=== PATIENT | male | born 1935 | race Caucasian/White ===

== ENCOUNTER → 2017-07-28 | Outpatient (CLI) | payer MEDICARE ==
[~2017-07-28] MED LIST: ASPI-1012 PO; ASPI-12 PO; CLOP75TA32 PO; IOPAMIDOL-370 75 ML VIAL IV ONE; ISOS5TAB5 PO; METO-408 PO; [UNRECOGNIZED DRUG - CODE] PO; isosorbide PO; metoprolol PO
== END | disposition home or self-care (01) ==
LOC: OIH 09:14
PROVIDERS: ATTEND Physician Assistant Medical
DX: K76.0 Fatty (change of) liver, not elsewhere classified (principal); K57.92 Diverticulitis of intestine, part unspecified, without perforation or abscess without bleeding
CPT/HCPCS: 74177; Q9967

== ENCOUNTER 2017-09-10 09:39 | Day surgery (SDC) | payer MEDICARE ==
[~2017-09-10] VITALS: Ht 185.4 cm; Wt 86.0 kg
[~2017-09-10 09:39] MED LIST changes: -ASPI-12 PO; -IOPAMIDOL-370 75 ML VIAL IV ONE; -ISOS5TAB5 PO; -METO-408 PO; +SODIUM CHLORIDE 0.9% 1000ML 1,000 ML IV ONE; -[UNRECOGNIZED DRUG - CODE] PO
[2017-09-10 10:19] VITALS: BP 135/66
[2017-09-10] MEDS ORDERED: PROPOFOL 10 MG/ML 20ML VIAL IV ONE ×2 (10:49→11:10)
[2017-09-10 11:27] VITALS: BP 98/62
== END 2017-09-10 12:10 | disposition home or self-care (01) ==
LOC: DAH 09:39 → ENDO 09:39
PROVIDERS: ATTEND Internal Medicine Gastroenterology
DX: K52.9 Noninfective gastroenteritis and colitis, unspecified (principal); K56.2 Volvulus; K29.80 Duodenitis without bleeding; K29.70 Gastritis, unspecified, without bleeding; I10 Essential (primary) hypertension; I25.119 Atherosclerotic heart disease of native coronary artery with unspecified angina pectoris; K27.9 Peptic ulcer, site unspecified, unspecified as acute or chronic, without hemorrhage or perforation; K21.9 Gastro-esophageal reflux disease without esophagitis; I48.91 Unspecified atrial fibrillation; E03.9 Hypothyroidism, unspecified; N40.0 Benign prostatic hyperplasia without lower urinary tract symptoms; Z95.1 Presence of aortocoronary bypass graft; Z95.5 Presence of coronary angioplasty implant and graft; Z98.890 Other specified postprocedural states
CPT/HCPCS: 43239; 45380; 88305; 88312; 88313; 93005; A4606; J2704 ×2; J7030

== ENCOUNTER → 2018-09-23 | Outpatient (CLI) | payer MEDICARE ==
[~2018-09-23] MED LIST changes: -SODIUM CHLORIDE 0.9% 1000ML 1,000 ML IV ONE
== END | disposition home or self-care (01) ==
LOC: RAH 13:43
PROVIDERS: ATTEND Family Medicine
DX: I65.23 Occlusion and stenosis of bilateral carotid arteries (principal); I25.10 Atherosclerotic heart disease of native coronary artery without angina pectoris; I10 Essential (primary) hypertension; I25.83 Coronary atherosclerosis due to lipid rich plaque
CPT/HCPCS: 93880

== ENCOUNTER → 2018-10-11 | Outpatient (CLI) | payer MEDICARE ==
[~2018-10-11] MED LIST changes: +IOHEXOL-350 50ML VIAL IV ONE
== END | disposition home or self-care (01) ==
LOC: RAH 07:45
PROVIDERS: ATTEND Family Medicine
DX: I65.23 Occlusion and stenosis of bilateral carotid arteries (principal)
CPT/HCPCS: 70498; Q9967

== ENCOUNTER → 2019-07-12 | Outpatient (CLI) | payer MEDICARE ==
[~2019-07-12] MED LIST changes: -IOHEXOL-350 50ML VIAL IV ONE
== END | disposition home or self-care (01) ==
LOC: RAH 13:30
PROVIDERS: ATTEND Family Medicine
DX: I70.221 Atherosclerosis of native arteries of extremities with rest pain, right leg (principal)
CPT/HCPCS: 93926

== ENCOUNTER 2020-01-05 11:53 | Observation (INO) | payer MEDICARE ==
[~2020-01-05] VITALS: Ht 188 cm; Wt 84.2 kg
[2020-01-05] MEDS ORDERED: ASPIRIN 325 MG TABLET ONE (12:11)
[2020-01-05] MEDS ORDERED: ASPIRIN 81MG TAB.CHEW ONE (12:14)
[2020-01-05 12:45] LABS: BASOPHILS % (AUTO) 0.5 % (0.0-5.0); EOSINOPHILS % (AUTO) 1.7 % (0.0-8.0); HEMATOCRIT 44.8 % (42-54); MEAN CORPUSCULAR HEMOGLOBIN 32.5 pg (27.0-33.0); MEAN CORPUSCULAR HGB CONC 33.9 g/dL (32.0-36.0); MEAN CORPUSCULAR VOLUME 95.9 fL (79-99); MONOCYTES % (AUTO) 10.7 % (3.0-13.0); NEUTROPHILS % (AUTO) 47.8 % (40.0-77.0); PLATELET COUNT (AUTO) 141 K/uL (130-400); RED BLOOD CELL COUNT(AUTO) 4.67 MIL/uL (4.50-6.20); RED CELL DISTRIBUTION WIDTH 13.4 % (11.0-15.5); WHITE BLOOD COUNT (AUTO) 5.8 K/uL (4.8-10.8)
[2020-01-05 12:51] LABS: POTASSIUM 4.2 mmol/L (3.5-5.1)
[2020-01-05] MEDS ORDERED: NITROGLYCERIN 1GM/1 INCH PACKET TD ONE ×2 (12:52→13:04)
[2020-01-05 12:53] LABS: INR 0.99 (0.85-1.15); PARTIAL THROMBOPLASTIN TIME 26.6 SEC (26.3-35.5); PROTHROMBIN TIME 10.7 SEC (9.6-11.6)
[2020-01-05 12:58] LABS: ALBUMIN 3.9 g/dL (3.5-5.0); BILIRUBIN,TOTAL 0.9 mg/dL (0.2-1.0); TOTAL PROTEIN, SERUM 7.2 g/dL (6.0-8.3)
[2020-01-05 13:39] LABS: B-TYPE NATRIURETIC PEPTIDE 112 pg/mL (0-100)
[2020-01-05] MEDS ORDERED: CLONIDINE HCL 0.1 MG TABLET PO PRN (15:30)
[2020-01-05] MEDS ORDERED: METOPROLOL TARTRATE 1 MG/ML 5ML VIAL IV PRN (15:30)
[2020-01-05] MEDS ORDERED: LACTULOSE 20 GM/30 ML UDCUP PO PRN (15:30)
[2020-01-05] MEDS ORDERED: IPRATROPIUM 0.5 MG/2.5 ML INH IH PRN (15:30)
[2020-01-05] MEDS ORDERED: HYDROMORPHONE HCL 2 MG/ML VIAL IVP PRN (15:30)
[2020-01-05] MEDS ORDERED: ALPRAZOLAM 0.25 MG TABLET PO PRN (15:30)
[2020-01-05] MEDS ORDERED: ACETAMINOPHEN 325 MG TAB PO PRN ×2 (15:30)
[2020-01-05] MEDS ORDERED: GUAIFENESIN-DM 200/20 MG 10 ML PO PRN (15:30)
[2020-01-05] MEDS ORDERED: HYDROCODONE/ACETAMINOPHEN 5/325 MG TAB PO PRN (15:30)
[2020-01-05] MEDS ORDERED: HYDRALAZINE HCL 20 MG/ML VIAL IV PRN (15:30)
[2020-01-05 17:55] VITALS: BP 143/76
[2020-01-05] MEDS ORDERED: METO-408 PO (18:44)
[2020-01-05] MEDS ORDERED: MULT-685 PO (18:44)
[2020-01-05] MEDS ORDERED: AEC81 PO (18:44)
[2020-01-05 20:00] VITALS: BP 119/64
[2020-01-06] VITALS: BP 132/75
[2020-01-06 04:00] VITALS: BP 125/66
[2020-01-06 08:00] VITALS: BP 121/65
[2020-01-06] MEDS ORDERED: ENOXAPARIN SODIUM 30 MG/0.3 ML SQ SCH (09:00)
[2020-01-06] MEDS ORDERED: ASPIRIN 81MG TAB.CHEW PO SCH (09:00)
[2020-01-06] MEDS ORDERED: FAMOTIDINE 20MG TAB 20 MG TAB PO SCH (09:00)
[2020-01-06] MEDS ORDERED: METOPROLOL SUCCINATE 50 MG TAB.SR.24H PO SCH ×2 (10:30→11:10)
[2020-01-06] MEDS ORDERED: CLOPIDOGREL BISULFATE 75 MG TAB PO SCH (11:09)
[2020-01-06] MEDS ORDERED: ASPIRIN 81 MG EC TAB PO SCH (11:09)
[2020-01-06] MEDS ORDERED: MULTIVITAMIN WITH MINERALS TABLET PO SCH (11:11)
[2020-01-06 12:00] VITALS: BP 136/77
--- NOTE | 2020-01-06 13:30 | NUR ---
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 STATES "" IS ON WAY TO PICK HIM UP.
--- NOTE | 2020-01-06 13:50 | NUR ---
AMA PT AWAKE, ALERT, AND ORIENTED. PT STATES WANTING TO GO HOME AND WILL NOT WAIT FOR MD TO ROUND OR WAIT FOR PENDING 2 D ECHO TO BE DONE. STATES "WORKUP" CAN BE DONE OUTPATIENT. PT DENIES CHEST PAIN, DENIES SOB OR LABORED RESPIRATIONS. AWARE OF RISKS OF LEAVING AMA; ACKNOWLEDGED ALL INFORMATION AND RISKS OF LEAVING AMA. PT MADE AWARE TO RETURN TO ER IF HAVING CHEST PAIN OR PROBLEMS. AWAITING FOR TRANSPORTATION. ANISH ESCOBAR FOR BENCHMARK MADE AWARE OF PT LEAVING AMA.
[2020-01-06] MEDS ORDERED: ISOSORBIDE DINITRATE 10 MG TABLET PO SCH (14:00)
== END 2020-01-06 14:00 | disposition left against medical advice (07) ==
LOC: EDH 11:53 → EDHIP 15:02 → 4CH 17:54
PROVIDERS: ADMIT Internal Medicine; ATTEND Internal Medicine
DX: R07.89 Other chest pain (principal); I25.119 Atherosclerotic heart disease of native coronary artery with unspecified angina pectoris; I10 Essential (primary) hypertension; Z95.1 Presence of aortocoronary bypass graft; Z95.5 Presence of coronary angioplasty implant and graft
CPT/HCPCS: 36415; 71045; 80053; 82550; 83880; 84484 ×3; 85025; 85610; 85730; 93005; 94664; 99285; G0378 ×10; J1650